=== PATIENT | male | born 2000 | race Two or more races ===

== ENCOUNTER 2024-07-30 10:24 | Emergency (ER) | payer MEDICAID, OTHER ==
[~2024-07-30] VITALS: Ht 170.2 cm; Wt 46.0 kg
[2024-07-30 10:32] VITALS: BP 123/76; PULSE 80; RESP 17; TEMP 98.2; O2SAT 99
--- NOTE | 2024-07-30 10:37 | ECG ---
[facility] Test Date: 2024-07-30 Test Time: 10:35:59 Pat Name: TIKI CARRASCO Department: ER Room: Gender: M Leg Man: : 2000 Requested By: TAYLER ALLEN Order Number: [id number] Reading MD: Lauro Pittman Measurements Intervals [place] Rate: 87 P: 0 NE: 0 QRS: 78 QRSD: 92 T: 47 QT: 336 QTc: 404 Interpretive Statements Atrial fibrillation RSR' in V1 or V2, probably normal variant Electronically Signed On 08-03-2024 20:46:09 PDT by Lauro Pittman Please click the below link to view image of tracing.
--- NOTE | 2024-07-30 10:39 | ED.PDOC ---
History of Present Illness HPI Comments 24 year old male presents to the ED with chief complaint of syncope/anxiety. Sister reports that the patient and herself were visiting their mother who is admitted to the hospital, however, when his mother was getting blood drawn, the patient had a syncopal episode in the chair he was sitting in. Sister relays that the patient also had an episode of urinary incontinence after the syncopal episode. Patient states he currently feels very nervous and anxious. Patient notes he has only had a donut for breakfast prior to his syncopal episode. Patient declines all lab work due to having a fear of needles, but agreed to an EKG. Patient denies any chest pain, SOB, dizziness, headache, head injury, N/V, or abdominal pain. Chief Complaint: Syncope Time Seen by MD: 10:36 Reviewed Notes: Nurses Notes, Medications, Allergies Allergies: Coded Allergies: NO KNOWN ALLERGIES (Unverified , 07/30/24) Information Source: Patient, Relative (Sibling) Mode of Arrival: Wheelchair Severity: Moderate Timing: Minutes Duration: Since onset Prehospital treatment: None Past Medical History PAST MEDICAL HISTORY: Denies Surgical History: Denies all surgeries Family History Family History: Reviewed,noncontributory to illness Social History Smoker: Non-Smoker Alcohol: Denies ETOH Use Drugs: Denies Drug Use Lives In: Home Constitutional: denies: chills, diaphoresis, fatigue, fever, malaise, sweats, weakness, others EENTM: denies: blurred vision, double vision, ear bleeding, ear discharge, ear drainage, ear pain, ear ringing, eye pain, eye redness, hearing loss, mouth pain, mouth swelling, nasal discharge, nose bleeding, nose congestion, nose pain, photophobia, tearing, throat pain, throat swelling, voice changes, others Respiratory: denies: cough, hemoptysis, orthopnea, SOB at rest, shortness of breath, SOB with excertion, stridor, wheezing, others Cardiovascular: reports: syncope; denies: chest pain, dizzy spells, diaphoresis, Dyspnea on exertion, edema, irregular heart beat, left arm pain, lightheadedness, palpitations, PND, others Gastrointestinal: denies: abdomen distended, abdominal pain, blood streaked bowels, constipated, diarrhea, dysphagia, difficulty swallowing, hematemesis, melena, nausea, poor appetite, poor fluid intake, rectal bleeding, rectal pain, vomiting, others Genitourinary: reports: incontinence; denies: burning, dysuria, flank pain, frequency, hematuria, penile discharge, penile sore, pain, testicle pain, testicle swelling, urgency, others Neurological: denies: dizziness, fainting, headache, left sided numbness, left sided weakness, numbness, paresthesia, pre-existing deficit, right sided numbness, right sided weakness, seizure, speech problems, tingling, tremors, weakness, others Musculoskeletal: denies: back pain, gout, joint pain, joint swelling, muscle pain, muscle stiffness, neck pain, others Integumetry: denies: bruises, change in color, change in hair/nails, dryness, laceration, lesions, lumps, rash, wounds, others Allergic/Immunocompromised: denies: Difficulty Healing, Frequent Infections, Hives, Itching, others Hematologic/Lymphatic: denies: anemia, blood clots, easy bleeding, easy bruising, swollen glands, others Endocrine: denies: excessive hunger, excessive sweating, excessive thirst, excessive urination, flushing, intolerance to cold, intolerance to heat, unexplained weight gain, unexplained weight loss, others Psychiatric: reports: anxiety; denies: bipolar disorder, depression, hopeless, panic disorder, schizophrenia, sleepless, suicidal, others All Other Systems: Reviewed and Negative Physical Exam General Appearance: Mild Distress, Thin HEENT: Other (Pupils and face symmetric. Moist mucous membranes.) Neck: Full Range of Motion, Normal Inspection Respiratory: Lungs Clear, No Accessory Muscle Use, No Respiratory Distress, Normal Breath Sounds Cardiovascular: No Edema, No JVD, Regular Rate/Rhythm Breast Exam: Deferred Gastrointestinal: Non Tender, Soft Genitalia: Deferred Pelvic: Deferred Rectal: Deferred Extremities: Normal inspection, Normal range of motion, Non-tender, No pedal edema Neurologic: Alert (Oriented x4), Normal Affect, Other (Appears very anxious. Ambulatory.) Cerebellar Function: NOT DONE Reflexes: NOT DONE Skin: Dry, Pallor, Warm Lymphatic: NOT DONE Was a procedure done? Was a procedure done?: No EKG EKG : Comments Sinus rhythm, rate 87, normal intervals, normal axis, normal QRS, no ST/T changes. Baseline artifact due to patient tremulous. Differential Dx Considerations may include: Vasovagal syncope, orthostasis, hypoglycemia, among others X-Ray, Labs, Meds, VS Vital Signs Date Time Temp Pulse Resp B/P (MAP) Pulse Ox O2 Delivery O2 Flow Rate FiO2 07/30/24 10:32 98.2 80 17 123/76 (92) 99 98.2 Lab Test 07/30/24 10:27 Range/Units POC Glucose 97 70-106 mg/dl X-Ray, Labs, Meds, VS Comment 24-year-old male with no significant past medical history presenting after a syncopal episode while visiting his mother in the hospital Vitals unremarkable Exam remarkable for anxious appearance and mild tremulousness, pallor Rhythm strip independently interpreted by me: Sinus rhythm, rate 87, no ectopy. Patient refused blood draw and IV access for IV fluid administration. Accu-Chek was in the 90s. On re-evaluation, patient was alert, oriented, ambulatory, and stating he was feeling better. Starting at 12:30 p.m., the patient was again called multiple times for re- evaluation, however there was no answer. It was assumed the patient had eloped from the ED. Time of 1ST Reevaluation: 11:35 Reevaluation 1ST: Improved Patient Education/Counseling: Diagnosis, Treatment Family Education/Counseling: Diagnosis, Treatment Departure 1 Departure Time of Disposition: 12:30 Impression: Primary Impression: Syncope Qualified Codes: R55 - Syncope and collapse Disposition: 07 LEFT AWOL/ELOPED Condition: Fair Critical Care Note Critical Care Time?: No Stability Stability form required: No Heart Score Heart Score: Heart Score Response (Comments) Value History N/A 0 EKG N/A 0 Age N/A 0 Risk Factors N/A 0 Troponin N/A 0 Total 0 I personally scribed for TAYLER LANTIGUA MD ([email or web address]) on 07/30/24 at 10:39. Electronically submitted by Mikal Moore ([email or web address]). TAYLER LANTIGUA MD Jul 30, 2024 10:39
== END 2024-07-30 14:09 | disposition home or self-care (01) ==
LOC: ER 10:24
DX: R55 Syncope and collapse (principal); F41.9 Anxiety disorder, unspecified
CPT/HCPCS: 82947; 82962; 93005